=== PATIENT | female | born 1975 | race Caucasian/White ===

== ENCOUNTER 2019-03-23 06:10 | Emergency (ER) | payer BC ==
[~2019-03-23] VITALS: Ht 160 cm; Wt 63.6 kg
[2019-03-23 06:15] VITALS: Ht 160 cm; Wt 63.6 kg
[2019-03-23] MEDS ORDERED: TRINTELLIX5 MG PO (06:43)
[2019-03-23] MEDS ORDERED: MEDROL DOSE PACK4 MG PO (06:43)
[2019-03-23] MEDS ORDERED: ARMOUR THYROID30 MG PO (06:43)
[2019-03-23] MEDS ORDERED: PULMICORT0.5 MG/21 INH (06:44)
[2019-03-23] MEDS ORDERED: GUAIFEN-CODEINE10 ML PO (06:45)
[2019-03-23] MEDS ORDERED: STERAPRED 5MG 65 M1 PO (06:45)
[2019-03-23] MEDS ORDERED: ALBUTEROL SULF8.5 GM INH (06:46)
[2019-03-23 06:55] LABS: CALC OSMOLALITY 280 mosm/kg (275-300); CALCIUM 8.9 mg/dL (8.5-10.1); CARBON DIOXIDE 27.9 mmol/L (21.0-32.0); CHLORIDE - SERUM 100 mmol/L (98-107); CREATININE - SERUM 1.2 mg/dL (0.6-1.3); GLUCOSE 85 mg/dL (74-106); POTASSIUM - SERUM 4.5 mmol/L (3.5-5.1); SODIUM 139 mmol/L (136-145); UREA NITROGEN 25 mg/dL (7-18); eGFR NON AFRICAN AMERICAN 52 mL/min (90-120)
[2019-03-23 07:01] LABS: HEMATOCRIT 41.2 % (36.0-48.0); HEMOGLOBIN 13.3 g/dL (12-16); MCH 31.7 pg (26.0-34.0); MCHC 32.3 g/dL (31.0-37.0); MCV 98.3 fL (80.0-100.0); MEAN PLATELET VOLUME 9.2 fL (7.4-10.4); PLATELET COUNT 321 10x3/uL (130-400); RBC 4.19 10x6/uL (4.00-5.40); RDW 13.4 % (11.5-14.5)
[2019-03-23 07:07] LABS: ALBUMIN 3.3 g/dL (3.4-5.0); ALKALINE PHOSPHATASE 57 U/L (46-116); ALT (SGPT) 35 U/L (10-68); LIPASE 336 U/L (73-393); PRO BNP 604 pg/mL (0-125); PROTEIN - SERUM 6.7 g/dL (6.4-8.2); THYROID STIMULATING HORMONE 2.76 uIU/mL (0.36-3.74)
[2019-03-23 07:09] LABS: TROPONIN-I < 0.017 ng/mL (0.000-0.060)
[2019-03-23 07:29] LABS: APPEARANCE CLEAR (CLEAR); BACTERIA FEW /hpf (NEGATIVE); BILIRUBIN NEGATIVE (NEGATIVE); COLOR YELLOW (YELLOW); EPITHELIAL CELLS 0-5 /hpf (0-5); GLUCOSE NEGATIVE (NEGATIVE); KETONE NEGATIVE (NEGATIVE); NITRITE NEGATIVE (NEGATIVE); PROTEIN NEGATIVE (NEGATIVE); SPECIFIC GRAVITY 1.015 (1.005-1.020); UROBILINOGEN NORMAL (NORMAL); WHITE CELLS - URINE OCC /hpf (NEGATIVE)
[2019-03-23 07:30] LABS: MUCUS <1+ /lpf (NONE SEEN)
[2019-03-23 07:48] LABS: UDS - AMPHET NEGATIVE QUAL (NEGATIVE); UDS - BARB NEGATIVE QUAL (NEGATIVE); UDS - BENZO POSITIVE QUAL (NEGATIVE); UDS - COCAINE NEGATIVE QUAL (NEGATIVE); UDS - OPIATE POSITIVE QUAL (NEGATIVE); UDS - PCP NEGATIVE QUAL (NEGATIVE); UDS - THC POSITIVE QUAL (NEGATIVE)
[2019-03-23] MEDS ORDERED: ZPAK PO (09:04)
[2019-03-23] MEDS ORDERED: HYDROCODON-ACE1 EAC7 PO (09:04)
[2019-03-23 09:08] LABS: ANISOCYTOSIS OCC; EOSINOPHILS 4 % (0-7); HYPOCHROMASIA OCC; LYMPHOCYTES 20 % (15-50); MONOCYTES 15 % (2-11); NEUTROPHILS 53 % (40-80); PLATELET ESTIMATE NORMAL
[2019-03-23 10:32] VITALS: BP 97/61
== END 2019-03-23 10:32 | disposition home or self-care (01) ==
LOC: EDBD 06:10 → D.ER 06:10
PROVIDERS: Family Medicine
DX: R05 Cough (principal)

== ENCOUNTER 2019-03-30 14:28 | Emergency (ER) | payer BC ==
[~2019-03-30] VITALS: Ht 160 cm; Wt 68.2 kg
[~2019-03-30 14:28] MED LIST: ALBUTEROL SULF8.5 GM INH; ARMOUR THYROID30 MG PO; GUAIFEN-CODEINE10 ML PO; HYDROCODON-ACE1 EAC7 PO; MEDROL DOSE PACK4 MG PO; PULMICORT0.5 MG/21 INH; STERAPRED 5MG 65 M1 PO; TRINTELLIX5 MG PO; ZPAK PO
[2019-03-30 14:41] VITALS: Ht 160 cm; Wt 68.2 kg
[2019-03-30 15:46] LABS: BASOPHILS 0.1 % (0-2); EOSINOPHILS 0.1 % (0-7); HEMATOCRIT 37.1 % (36.0-48.0); HEMOGLOBIN 12.1 g/dL (12-16); IMMATURE GRANULOCYTES 0.7 % (0-5); LYMPHOCYTES 4.3 % (15-50); MCH 31.3 pg (26.0-34.0); MCHC 32.6 g/dL (31.0-37.0); MCV 96.1 fL (80.0-100.0); MEAN PLATELET VOLUME 9.5 fL (7.4-10.4); MONOCYTES 4.6 % (2-11); NEUTROPHILS 90.2 % (40-80); RBC 3.86 10x6/uL (4.00-5.40); RDW 13.1 % (11.5-14.5)
[2019-03-30 15:47] LABS: PLATELET COUNT 202 10x3/uL (130-400)
[2019-03-30 15:59] LABS: APTT 26.3 SECONDS (22.8-39.4); INR 0.91 (0.85-1.17); PROTIME 12.2 SECONDS (11.6-15.0)
[2019-03-30 16:00] LABS: CALC OSMOLALITY 280 mosm/kg (275-300); CALCIUM 8.7 mg/dL (8.5-10.1); CARBON DIOXIDE 24.9 mmol/L (21.0-32.0); CHLORIDE - SERUM 104 mmol/L (98-107); CREATININE - SERUM 0.9 mg/dL (0.6-1.3); POTASSIUM - SERUM 3.8 mmol/L (3.5-5.1); SODIUM 139 mmol/L (136-145); UREA NITROGEN 14 mg/dL (7-18); eGFR NON AFRICAN AMERICAN 72 mL/min (90-120)
[2019-03-30 16:11] LABS: GLUCOSE 136 mg/dL (74-106)
[2019-03-30 16:34] LABS: ALBUMIN 3.4 g/dL (3.4-5.0); ALKALINE PHOSPHATASE 47 U/L (46-116); ALT (SGPT) 70 U/L (10-68); BILIRUBIN - TOTAL 0.34 mg/dL (0.2-1.3); CKMB 1.6 U/L (0.0-3.6); CREATINE KINASE 174 UL (21-215); MAGNESIUM - SERUM 1.8 mg/dL (1.8-2.4); PROTEIN - SERUM 6.8 g/dL (6.4-8.2); TROPONIN-I < 0.017 ng/mL (0.000-0.060)
[2019-03-30 16:51] LABS: UDS - AMPHET NEGATIVE QUAL (NEGATIVE); UDS - BARB NEGATIVE QUAL (NEGATIVE); UDS - BENZO NEGATIVE QUAL (NEGATIVE); UDS - COCAINE NEGATIVE QUAL (NEGATIVE); UDS - OPIATE POSITIVE QUAL (NEGATIVE); UDS - PCP NEGATIVE QUAL (NEGATIVE); UDS - THC POSITIVE QUAL (NEGATIVE)
[2019-03-30 16:53] LABS: APPEARANCE CLEAR (CLEAR); BILIRUBIN NEGATIVE (NEGATIVE); COLOR YELLOW (YELLOW); GLUCOSE 50 mg/dL (NEGATIVE); KETONE LARGE mg/dL (NEGATIVE); NITRITE NEGATIVE (NEGATIVE); PROTEIN NEGATIVE (NEGATIVE); SPECIFIC GRAVITY 1.005 (1.005-1.020); UROBILINOGEN NORMAL (NORMAL)
[2019-03-30] MEDS ORDERED: ATIVAN1 MG PO (19:03)
[2019-03-30] MEDS ORDERED: ZOFRAN ODT4 MG/UDTAB PO (19:03)
[2019-03-30 19:50] VITALS: BP 114/67
== END 2019-03-30 19:50 | disposition home or self-care (01) ==
LOC: D.ER 14:28
PROVIDERS: Family Medicine
DX: R07.89 Other chest pain (principal); F41.9 Anxiety disorder, unspecified; R11.2 Nausea with vomiting, unspecified; E03.9 Hypothyroidism, unspecified